=== PATIENT | female | born 1935 | race Caucasian/White ===

== ENCOUNTER 2022-12-02 23:34 | Emergency (ER) | payer MEDICARE, BC ==
[~2022-12-02] VITALS: Ht 167.6 cm; Wt 86.0 kg
[2022-12-03 00:40] VITALS: BP 150/74
== END 2022-12-03 01:29 | disposition home or self-care (01) ==
LOC: ED 23:34
DX: Z20.822 Contact with and (suspected) exposure to COVID-19 (principal)